=== PATIENT | female | born 1965 | race Caucasian/White ===

== ENCOUNTER 2020-04-08 06:35 | Outpatient (CLI) | payer OTHER, SELFPAY ==
--- NOTE | 2020-04-08 09:05 | WPDNEUROLOGY ---
Neurology EEG Report General Information Date of Study: 04/08/20 TEST EEG DIAGNOSIS Memory loss CONDITION OF RECORDING Awake ,drowsy and sleep EEG NUMBER [id number] CLINICAL HISTORY Patient reported for the last several years she has been experiencing dizziness along with a gait dysfunction and memory loss. EEG DESCRIPTION Basic resting occipital frequency consists of minimal amount of poorly organized low voltage 11 to 13 hertz per 2nd alpha during brief periods of wakefulness. Low-voltage beta activity seen diffusely during drowsiness. Bilateral symmetrical sleep activity seen during sleep admixed with the regular EKG artifact. Non paroxysmal. Nonfocal. Nonlateralizing. IMPRESSION Normal EEG
== END 2020-04-08 06:36 | disposition home or self-care (01) ==
PROVIDERS: PCP Internal Medicine; Visit Provider Psychiatry & Neurology Neurology
DX: R41.3 Other amnesia (principal)
CPT/HCPCS: 95816

== ENCOUNTER → 2020-10-07 10:48 | Outpatient (CLI) | payer OTHER, SELFPAY ==
--- NOTE | ~2020-10-07 | MM_ITS ---
EXAMINATION: MM screening anish BI w gail HISTORY: Screening mammogram TECHNIQUE: Craniocaudal and mediolateral oblique 3-D tomosynthesis images were obtained and synthetic 2-D images were generated. CAD analysis was submitted and interpreted. COMPARISON: 03/18/2017 bilateral digital screening mammogram BREAST PARENCHYMAL COMPOSITION: The breasts are heterogeneously dense, which may obscure small masses . FINDINGS: Stable fibroglandular asymmetry. There is no evidence of suspicious mass, calcification, or architectural distortion to suggest malignancy in either breast. There has been no suspicious interv al change. IMPRESSION: 1. No mammographic evidence of malignancy. 2. Recommend routine screening mammography in one year. BI-RADS Category 1: Negative Reviewed, dictated and finalized at location A.
== END ==
PROVIDERS: Visit Provider Obstetrics & Gynecology Gynecology
DX: Z12.31 Encounter for screening mammogram for malignant neoplasm of breast (principal)
CPT/HCPCS: 77063; 77067

== ENCOUNTER 2021-01-27 01:25 | Emergency (ER) | payer OTHER, SELFPAY ==
[2021-01-27] VITALS (26 sets, daily range): BP systolic 90–130; BP diastolic 64–89; PULSE 88–104; RESP 14–24; TEMP 36.7; O2SAT 95–100
--- NOTE | ~2021-01-27 | XR_ITS ---
EXAMINATION: XR chest 1V portable 01/27/2021 02:53 INDICATION: Shortness of breath, cough and fever PROCEDURE: AP portable chest COMPARISON: 03/20/2015 FINDINGS: The lungs are clear. The cardiomediastinal silhouette is within normal limits. There are no pleural effusions. There is no pneumothorax suspected. IMPRESSION: 1: NO ACUTE CARDIOPULMONARY DISEASE. Reviewed, dictated and finalized at location A.
--- NOTE | 2021-01-27 01:39 | ECG_ITS ---
Measurements Intervals [place] Rate: 102 P: 28 DE: 121 QRS: -3 QRSD: 88 T: 0 QT: 189 QTc: 246 Interpretive Statements SINUS TACHYCARDIA INFERIOR INFARCT, AGE INDETERMINATE BORDERLINE T WAVE ABNORMALITY- ANTEROLATERAL LEADS BASELINE ARTIFACT- II, III, AVF, V1, V3-V6 ABNORMAL ECG Electronically Signed On 01-27-2021 6:20:52 CDT by Jesu Wagner D.O.
--- NOTE | 2021-01-27 02:25 | ED.URI ---
HPI - URI/Sore Throat General Chief Complaint: Upper Respiratory Infection Stated Complaint: covid symptoms Time Seen by Provider: 01/27/21 01:45 History of Present Illness HPI Narrative: 55 yo female presents to the ED c/o COVID symptoms. She has not felt well for the past 3 days. Symptoms in clude cough, congestion, SOB, nausea/vomiting, body aches, fever, headache. She tried OTC medications without significant improvement. She has not been vaccinated. Related Data Home Medications Medication Instructions Recorded Confirmed acetaminophen 650 mg 650 mg PO PRN PRN 06/27/19 07/24/19 tablet,extended release bupropion HCl 150 mg tablet,12 hr 150 mg PO BID 06/27/19 07/24/19 sustained-release lorazepam 0.5 mg tablet 0.5 mg PO PRN PRN 06/27/19 07/24/19 metoprolol tartrate 25 mg tablet 25 mg PO BID tablet 06/27/19 07/24/19 ondansetron HCl 4 mg tablet 4 mg PO PRN PRN 06/27/19 07/24/19 zolpidem 5 mg tablet 5 mg PO PRN PRN 06/27/19 07/24/19 cholestyramine (with sugar) 4 gm PO EVERY OTHER DAY 07/19/19 07/24/19 melatonin 3 mg PO HS PRN 07/19/19 07/24/19 Allergies Allergy/AdvReac Type Severity Reaction Status Date / Time banana Allergy Severe itching Verified 01/27/21 01:42 eyes hydrocodone Allergy Severe hallucinati Verified 01/27/21 01:42 ons;n/v morphine Allergy Severe hypotension, Verified 01/27/21 01:42 n/v [place] Allergy Severe Anaphylaxis Uncoded 01/27/21 01:42 Shrimp Allergy Intermediate Hives Uncoded 01/27/21 01:42 Review of Systems Review of Systems: All systems reviewed & are unremarkable except as noted in HPI and below PMFSH Past Medical History Medical History Anxiety Choledocholithiasis Depression Diarrhea Erosive gastritis High cholesterol Hypertension Microscopic colitis Nausea & vomiting Psychiatric disorder Upper abdominal pain Surgical History Surgical History H/O: hysterectomy Hx laparoscopic cholecystectomy Umbilical hernia Family History Family History Father Hypertension Lung cancer Hx of gallstones Mother Hypertension Alzheimer disease PVD (peripheral vascular disease) Social History Social History Smoking status: Never smoker Alcohol intake: never Gender identity (if verbalized by the patient): Female Sexual Orientation (if Verbalized by the Patient): Straight or Heterosexual Exam Const: General: no acute distress and alert Orientation/consciousness: patient oriented x3 HENMT: Head: normal to inspection Neck: Neck: normal visual inspection Resp: Effort & Inspection: normal respiratory effort Auscultation: clear to auscultation bilaterally, no rales, no rhonchi and no wheezes Cardio: Jugular venous distension: no JVD Rate: regular rate Rhythm: regular rhythm Heart sounds: no murmurs GI: Inspection: non-distended GI Palp: Yes Soft to palpation and No Tenderness to palpation present (GI) Skin: General skin exam: normal color Neuro: General: patient oriented x3 and moves all extremities Speech: normal speech Extrem: General: no edema Psych: Appearance: well kempt Affect: normal affect Course Vital Signs Vital signs: Vital Signs Temperature 36.7 C 01/27/21 01:28 Pulse Rate 104 H 01/27/21 01:28 Respiratory Rate 20 01/27/21 01:28 Pulse Oximetry 96 01/27/21 01:28 Temperature 36.7 C 01/27/21 01:28 Pulse Rate 88 01/27/21 05:53 Respiratory Rate 15 01/27/21 05:53 Blood Pressure 100/78 01/27/21 05:53 Pulse Oximetry 98 01/27/21 05:53 MDM - URI/Sore Throat MDM Narrative Medical decision making narrative: Likely COVID. imaging and labs unremarkable. VS stable. Differential Diagnosis Differential diagnosis: Likely upper respiratory infection, viral infection and
[2021-01-27] MEDS: KETOROLAC 30 MG/ML VIAL (*BKC) IV PUSH (02:58)
[2021-01-27] MEDS: METOCLOPRAMIDE HCL INJ 10 MG/2 ML VIAL IV PUSH (02:58)
[2021-01-27 03:23] LABS: Basophils Percent Auto 0.5 % (0.2-1.2); Eosinophils Absolute Auto 0.1 K/mm3 (0-0.3); Hematocrit 40.4 % (37.0-47.0); Hemoglobin 12.8 g/dL (12.0-15.0); Immature Granulocyte Absolute 0.12 K/mm3 (0.00-0.031); Lymphocytes Absolute Auto 1.24 K/mm3 (0.9-3.2); Lymphocytes Percent Auto 21.1 % (18.3-44.2); Mean Corpuscular HGB Conc 31.7 g/dl (32-36); Mean Corpuscular Hemoglobin 27.9 pg (26-34); Mean Platelet Volume 9.8 fl (7.4-10.4); Monocytes Absolute Auto 0.5 K/mm3 (0.1-0.6); Monocytes Percent Auto 8.9 % (2.6-8.5); Neutrophils Absolute Auto 3.9 K/mm3 (1.3-6.7); Neutrophils Percent Auto 66.5 % (45.5-73.1); Platelet Count Result 207 k/mm3 (150-375); Red Blood Count 4.59 M/mm3 (4.2-5.4); Red Cell Distribution Width 15.3 % (11.5-14.5); White Blood Count 5.9 K/mm3 (4.5-10.0)
[2021-01-27 03:24] LABS: Anion Gap 11 mmol/L (8-16); Blood Urea Nitrogen 6 mg/dL (7-17); Calcium 8.8 mg/dL (8.4-10.2); Carbon Dioxide 23 mmol/L (22-30); Chloride 104 mmol/L (98-107); Estimated CRCL calculation 79 ml/min; Estimated Glomerular Filt Rate > 60; Glucose 94 mg/dL (65-110); Potassium 3.4 mmol/L (3.4-5.0); Sodium 138 mmol/L (137-145)
[2021-01-27 18:40] LABS: SARS-CoV-2 RNA PCR Positive
== END 2021-01-27 05:55 | disposition home or self-care (01) ==
PROVIDERS: Emergency Provider Emergency Medicine; PCP Internal Medicine
DX: U07.1 COVID-19 (principal); E78.00 Pure hypercholesterolemia, unspecified; I10 Essential (primary) hypertension; F41.9 Anxiety disorder, unspecified; F32.9 Major depressive disorder, single episode, unspecified; R00.0 Tachycardia, unspecified; R94.31 Abnormal electrocardiogram [ECG] [EKG]
CPT/HCPCS: 36415; 71045; 80048; 85025; 93005; 96374; 96375; 99284; C9803; J1885; J2765; U0003; U0005